=== PATIENT | male | born 2000 | race Two or more races ===

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

== ENCOUNTER 2023-09-21 20:27 | Emergency (ER) | payer MEDICAID, OTHER ==
[~2023-09-21] VITALS: Ht 172.7 cm; Wt 59.0 kg
[2023-09-21 20:32] VITALS: BP 125/77; PULSE 70; RESP 15; TEMP 98.4; O2SAT 100
[2023-09-21] MEDS ORDERED: DOCU-138 MT (21:48)
== END 2023-09-21 21:00 | disposition left against medical advice (07) ==
LOC: ER 20:27
DX: R51.9 Headache, unspecified (principal); Z53.21 Procedure and treatment not carried out due to patient leaving prior to being seen by health care provider
CPT/HCPCS: L1830

== ENCOUNTER 2024-05-03 14:52 | Emergency (ER) | payer MEDICAID ==
[~2024-05-03] VITALS: Ht 172.7 cm; Wt 60.0 kg
[2024-05-03 14:54] VITALS: BP 114/64; PULSE 91; RESP 18; TEMP 98.4; O2SAT 98
== END 2024-05-03 15:27 | disposition left against medical advice (07) ==
LOC: ER 14:52
DX: R51.9 Headache, unspecified (principal); Z53.21 Procedure and treatment not carried out due to patient leaving prior to being seen by health care provider